=== PATIENT | female | born 1995 | race Hispanic/Latino ===

== ENCOUNTER 2018-04-11 10:41 | Observation (INO) | payer MEDICAID ==
[~2018-04-11] VITALS: Ht 152.4 cm; Wt 73.0 kg
[2018-04-11 11:25] LABS: HEMATOCRIT 32.3 % (36-48); MEAN CORPUSCULAR HEMOGLOBIN 25.7 pg (27.0-33.0); MEAN CORPUSCULAR VOLUME 77.9 fL (79-99); NUCLEATED RED BLOOD CELLS 0.1 % (0.0-0.19); PLATELET COUNT (AUTO) 155 K/uL (130-400); RED BLOOD CELL COUNT(AUTO) 4.15 MIL/uL (4.00-5.50); RED CELL DISTRIBUTION WIDTH 15.3 % (11.0-15.5); WHITE BLOOD COUNT (AUTO) 6.6 K/uL (4.8-10.8)
[2018-04-11 11:27] LABS: APPEARANCE,URINE Clear (CLEAR); BILIRUBIN,URINE Negative (NEGATIVE); COLOR,URINE Yellow (YELLOW); GLUCOSE, URINE (UA) Negative (NEGATIVE); KETONES,URINE Negative (NEGATIVE); LEUKOCYTE ESTERASE ,URINE Small (NEGATIVE); NITRATE,URINE Negative (NEGATIVE); OCCULT BLOOD,URINE Negative (NEGATIVE); PROTEIN,URINE Negative (NEGATIVE)
[2018-04-11 12:00] LABS: BACTERIA,URINE Few /HPF (None Seen); RBC,URINE None Seen /HPF (0-1)
[2018-04-11 12:01] LABS: MUCUS,URINE Moderate LPF (None Seen); SQUAMOUS EPITHELIAL CELL,UR 30-50 /HPF (0-2)
[2018-04-11] MEDS ORDERED: CEFTRIAXONE SODIUM 1 GM ONE (13:25)
[2018-04-11] MEDS ORDERED: CEFTRIAXONE SODIUM 1 GM IVP ONE (14:20)
[2018-04-11] MEDS ORDERED: LACTATED RINGERS 1000ML IV ONE (14:30)
[2018-04-12 09:19] LABS: HEPATITIS Bs ANTIGEN SCREEN P Negative (Negative)
== END 2018-04-11 15:31 | disposition home or self-care (01) ==
LOC: LDH 10:41
PROVIDERS: ADMIT Obstetrics & Gynecology; ATTEND Obstetrics & Gynecology
DX: O99.513 Diseases of the respiratory system complicating pregnancy, third trimester (principal); R06.02 Shortness of breath; R00.2 Palpitations; Z3A.36 36 weeks gestation of pregnancy
CPT/HCPCS: 36415; 81001; 85027; 86592; 86850; 86870; 86900; 86901; 87340; 93005; G0378 ×5; J0696; 96360; 96361

== ENCOUNTER 2021-01-16 16:55 | Observation (INO) | payer MEDICAID ==
[~2021-01-16 16:55] MED LIST: PREN-196 PO
== END 2021-01-16 18:35 | disposition home or self-care (01) ==
LOC: LDH 16:55
PROVIDERS: ADMIT Specialist; ATTEND Specialist
DX: O36.8130 Decreased fetal movements, third trimester, not applicable or unspecified (principal); O26.893 Other specified pregnancy related conditions, third trimester; R03.0 Elevated blood-pressure reading, without diagnosis of hypertension; Z3A.36 36 weeks gestation of pregnancy
CPT/HCPCS: 59025; 76819; G0378